=== PATIENT | female | born 2005 | race Hispanic/Latino ===

== ENCOUNTER 2024-09-28 15:10 | Emergency (ER) | payer OTHER ==
[2024-09-28] MEDS ORDERED: Dexamethasone 4 mg/ml Vial ONE (15:34)
== END 2024-09-28 17:02 | disposition home or self-care (01) ==
LOC: CSHERS 15:10
DX: K80.20 Calculus of gallbladder without cholecystitis without obstruction (principal); J11.1 Influenza due to unidentified influenza virus with other respiratory manifestations
CPT/HCPCS: 87081; 87428; 87430; 99283; J1100